=== PATIENT | female | born 1975 | race Caucasian/White ===

== ENCOUNTER → 2017-01-09 | Day surgery (SDC) | payer OTHER | END | disposition home or self-care (01) | LOC: FAS 06:49 | DX: N83.11 Corpus luteum cyst of right ovary (principal); G62.9 Polyneuropathy, unspecified; R56.9 Unspecified convulsions; F32.9 Major depressive disorder, single episode, unspecified; D64.9 Anemia, unspecified; G43.909 Migraine, unspecified, not intractable, without status migrainosus; Z79.899 Other long term (current) drug therapy; F17.210 Nicotine dependence, cigarettes, uncomplicated; Z88.8 Allergy status to other drugs, medicaments and biological substances; Z90.49 Acquired absence of other specified parts of digestive tract; Z98.890 Other specified postprocedural states; Z86.711 Personal history of pulmonary embolism | CPT/HCPCS: 84703; 88305; J1170; J1644; J2405; J2704; J2710; J3010 ==

== ENCOUNTER 2021-05-11 12:48 | Emergency (ER) | payer OTHER ==
[~2021-05-11 12:48] MED LIST: ACETAMINOPHEN325 MG PO; CITRATE OF MAG296 ML PO; IMITREX100 MG PO; PERCOCET 5-3251 EACH PO
[2021-05-11 14:26] LABS: BASOPHIL 0.8 % (0-2); HCT 41.3 % (37.0-47.0); HGB 13.8 g/dl (12.5-16.0); LYMPHOCYTE 34.7 % (15-48); MCH 32.4 pg (25.0-31.0); MCHC 33.4 g/dL (32.0-36.0); MCV 96.9 fL (78.0-100.0); MONOCYTE 6.7 % (0-12); MPV 10.6 fL (6.0-9.5); NEUTROPHIL 56.5 % (41-80); NRBC 0; PLT 215 K/uL (150-400); RBC 4.26 M/uL (4.20-5.40); RDW 13.1 % (11.5-14.0)
[2021-05-11 14:30] LABS: INR 0.9 (0.9-1.2); PROTHROMBIN TIME 11.6 SECONDS (11.8-13.4); PTT 22.8 SECONDS (24.4-34.7)
[2021-05-11 14:35] LABS: ALBUMIN 3.7 g/dL (3.4-5.0); BILIRUBIN - TOTAL 0.2 mg/dL (0.2-1.0); BUN/CREAT RATIO (CALC) 11.7 RATIO; CREATININE 0.94 mg/dL (0.51-0.95); GLOBULIN (CALCULATION) 3.5 g/dL; POTASSIUM 3.8 mmol/L (3.5-5.1); TOTAL PROTEIN 7.2 g/dL (6.4-8.2)
[2021-05-11] MEDS ORDERED: SEROQUEL 25MG T25 MG PO (16:42)
[2021-05-11] MEDS ORDERED: ONDANSETRON ODT4 MG PO (16:42)
== END 2021-05-11 17:05 | disposition home or self-care (01) ==
LOC: FER 12:48
PROVIDERS: Internal Medicine
DX: R07.89 Other chest pain (principal); G47.00 Insomnia, unspecified; R11.0 Nausea; F17.210 Nicotine dependence, cigarettes, uncomplicated; Z88.2 Allergy status to sulfonamides; Z88.6 Allergy status to analgesic agent
CPT/HCPCS: 36415; 71045; 71275; 80053; 84484; 85025; 85610; 85730; 93005; J2405; Q9967; U0002

== ENCOUNTER 2022-02-13 09:41 | Emergency (ER) | payer OTHER ==
[~2022-02-13 09:41] MED LIST changes: +ONDANSETRON ODT4 MG PO; +SEROQUEL 25MG T25 MG PO
[2022-02-13 10:54] LABS: BASOPHIL 0.7 % (0-2); BILIRUBIN NEGATIVE (NEGATIVE); BLOOD NEGATIVE Ery/uL (NEGATIVE); CLARITY CLEAR (CLEAR); COLOR YELLOW (YELLOW); EOSINOPHIL 0.9 % (0-5); GLUCOSE (U) NORMAL (NORMAL); HCT 40.7 % (37.0-47.0); HGB 13.9 g/dl (12.5-16.0); LEUKOCYTES NEGATIVE Leu/uL (NEGATIVE); LYMPHOCYTE 32.6 % (15-48); MCH 31.9 pg (25.0-31.0); MCHC 34.2 g/dL (32.0-36.0); MCV 93.3 fL (78.0-100.0); MONOCYTE 4.8 % (0-12); MPV 10.6 fL (6.0-9.5); NEUTROPHIL 60.7 % (41-80); NITRITE NEGATIVE (NEGATIVE); NRBC 0; PLT 228 K/uL (150-400); PROTEIN NEGATIVE (NEGATIVE); RBC 4.36 M/uL (4.20-5.40); RDW 12.5 % (11.5-14.0); SPECIFIC GRAVITY 1.025 (1.001-1.030); UROBILINOGEN 0.2 mg/dL (0.2-1.0); WBC 6.9 K/uL (4.0-10.5); pH 6.5 (5.0-9.0)
[2022-02-13 11:01] LABS: INR 0.97 (0.9-1.2); PROTHROMBIN TIME 12.6 SECONDS (11.9-13.9); PTT 21.5 SECONDS (24.9-34.6)
[2022-02-13 11:18] LABS: ALBUMIN 4.1 g/dL (3.4-5.0); BILIRUBIN - TOTAL 0.4 mg/dL (0.2-1.0); BUN/CREAT RATIO (CALC) 10.1 RATIO; CREATININE 0.89 mg/dL (0.51-0.95); GLOBULIN (CALCULATION) 2.8 g/dL; MAGNESIUM 1.9 mg/dL (1.8-2.4); POTASSIUM 3.8 mmol/L (3.5-5.1); TOTAL PROTEIN 6.9 g/dL (6.4-8.2)
[2022-02-13] MEDS ORDERED: NORCO 5-325 TA1 EACH PO (11:51)
[2022-02-13] MEDS ORDERED: PHENERGAN25 M1 PO (11:51)
[2022-02-13] MEDS ORDERED: ONDANSETRON ODT4 MG PO (11:51)
== END 2022-02-13 12:41 | disposition home or self-care (01) ==
LOC: FER 09:41
PROVIDERS: Internal Medicine
DX: R10.30 Lower abdominal pain, unspecified (principal); M54.50 Low back pain, unspecified; R11.0 Nausea; F17.210 Nicotine dependence, cigarettes, uncomplicated; Z88.2 Allergy status to sulfonamides; Z88.6 Allergy status to analgesic agent
CPT/HCPCS: 36415; 80053; 81003; 83690; 83735; 84145; 85025; 85610; 85730; J2550; J7120